=== PATIENT | female | born 1955 | race African-American/Black ===

== ENCOUNTER 2020-08-25 13:23 | Emergency (ER) | payer MEDICAID, OTHER ==
[~2020-08-25] VITALS: Ht 165.1 cm; Wt 75.0 kg
[~2020-08-25 13:23] MED LIST: CLON0.1T PO; HYDR-1348 PO; HYDR25TA PO; HYDROCHLOROTHIAZIDE PO; IBUP-1008 PO; LISI40TA13 PO; TRAM50TA3 PO
[2020-08-25 17:46] VITALS: BP 175/77
[2020-08-25] MEDS ORDERED: HYDR25TA PO (18:59)
[2020-08-25] MEDS ORDERED: LISI40TA13 PO (18:59)
[2020-08-25] MEDS ORDERED: HYDROCODONE/ACETAMINOPHEN 10/325MG TABLET PO NR (19:30)
== END 2020-08-25 19:29 | disposition home or self-care (01) ==
LOC: ER 13:23
DX: R05 Cough (principal); R06.02 Shortness of breath; I10 Essential (primary) hypertension; E11.9 Type 2 diabetes mellitus without complications; Z87.01 Personal history of pneumonia (recurrent)
CPT/HCPCS: 71045; 93005; 99283